=== PATIENT | female | born 1985 | race Caucasian/White ===

== ENCOUNTER 2018-01-08 22:47 | Observation (INO) | payer MEDICAID ==
--- NOTE | 2018-01-08 23:21 | ED PDOC ---
Arrival/HPI - General Chief Complaint: Dizziness/Lightheaded Time Seen by Provider: 01/08/18 23:03 Historian: Patient - History of Present Illness Narrative History of Present Illness (Text): 01/08/18 23:18 32 year old female, whose past medical history includes recent miscarriage 1 week ago, presents to the emergency department complaining of nausea and dizziness for the past week. Patient states she has been taking Morphine prescribed by her doctor following the miscarriage.Pt. states she was 2 months . Patient denies any fever, chills, chest pain, shortness of breath, abdominal pain, vomiting, diarrhea, urinary symptoms, back pain, neck pain, headache, or any other complaints.No vaginal bleeding currently. PMD: Dr. Beatrice Elder Time/Duration: 1 week Symptom Onset: Gradual Symptom Course: Unchanged Activities at Onset: Light Context: Home Past Medical History - Provider Review Nursing Documentation Reviewed: Yes - Psychiatric Hx Substance Use: No Family/Social History - Physician Review Nursing Documentation Reviewed: Yes Family/Social History: No Known Family HX Smoking Status: no Hx Alcohol Use: No Hx Substance Use: No Allergies/Home Meds Allergies/Adverse Reactions: Allergies No Known Allergies Allergy (Unverified 01/08/18 23:14) Home Medications: Home Meds Medication Instructions Recorded Confirmed No Known Home Med 01/09/18 01/09/18 Review of Systems - Physician Review All systems were reviewed & negative as marked: Yes - Review of Systems Constitutional: absent: Fevers, Other (Chills) Respiratory: absent: SOB Cardiovascular: absent: Chest Pain Gastrointestinal: Nausea. absent: Abdominal Pain, Diarrhea, Vomiting Genitourinary Female: absent: Dysuria, Frequency, Hematuria Musculoskeletal: absent: Back Pain, Neck Pain Skin: Other (pale) Neurological: Dizziness. absent: Headache Physical Exam Vital Signs Reviewed: Yes Vital Signs Temp Pulse Resp Pulse Ox 01/08/18 23:06 98.6 F 101 H 18 99 Temperature: Afebrile Pulse: Tachycardic Respiratory Rate: Normal Appearance: Positive for: Well-Appearing, Non-Toxic, Comfortable Pain Distress: None Mental Status: Positive for: Alert and Oriented X 3 - Systems Exam Head: Present: Atraumatic, Normocephalic Pupils: Present: PERRL Extroacular Muscles: Present: EOMI Conjunctiva: Present: Other (pale) Ears: Present: NORMAL TM Mouth: Present: Moist Mucous Membranes Neck: Present: Normal Range of Motion Respiratory/Chest: Present: Clear to Auscultation, Good Air Exchange. No: Respiratory Distress, Accessory Muscle Use Cardiovascular: Present: Normal S1, S2, Tachycardic. No: Murmurs Abdomen: No: Tenderness, Distention, Peritoneal Signs Back: Present: Normal Inspection Upper Extremity: Present: Normal Inspection. No: Cyanosis, Edema Lower Extremity: Present: Normal Inspection. No: Edema Neurological: Present: GCS=15, CN II-XII Intact, Speech Normal, Motor Func Grossly Intact, Normal Sensory Function Skin: Present: Warm, Dry, Normal Color. No: Rashes Psychiatric: Present: Alert, Oriented x 3, Normal Insight, Normal Concentration Medical Decision Making ED Course and Treatment: 01/08/18 23:18 Impression: 32 year old female presents complaining of nausea and dizziness for the past week. Patient has been taking Morphine for the past week following miscarriage. Plan: -- EKG -- Labs -- IV Fluids, Zofran Inj -- Urinalysis -- Reassess and disposition Progress Notes: 01/09/18 02:19 EKG shows Sinus Tachycardia at 100 BPM with no acute changes. Interpreted by me. 01/09/18 02:21 Case discussed with General Farm Hand and Dr. Pike who is aware and agrees with the plan. Accepts patient to hospitalist service. - Lab Interpretations Lab Results: 01/08/18 23:49 01/08/18 23:49 Lab Results 01/08/18 23:49: Urine Color Yellow, Urine Appearance Clear, Urine pH 6.0, Ur Specific [place] 1.015, Urine Protein Negative, Urine Glucose (UA) Negative, Urine Ketones Negative, Urine Blood Large H, Urine Nitrate Negative, Urine Bilirubin Negative, Urine Urobilinogen 0.2, Ur Leukocyte Esterase Negative, Urine RBC 5 - 10, Urine WBC 0 - 2, Ur Epithelial Cells 1 - 3, Urine Bacteria Few 01/08/18 23:49: WBC 8.6, RBC 3.14 L, Hgb 7.7 L, Hct 24.1 L, MCV 76.8 L, MCH 24.5 L, MCHC 32.0, RDW 14.6 H, Plt Count 301, MPV 11.0 01/08/18 23:49: Sodium 142, Potassium 4.2, Chloride 107, Carbon Dioxide 26, Anion Gap 13, BUN 7, Creatinine 0.7, Est GFR ( Amer) > 60, Est GFR (Non- Af Amer) > 60, Random Glucose 101, Calcium 9.8, Total Bilirubin 0.2, AST 22, ALT 22, Alkaline Phosphatase 63, Lactate Dehydrogenase 404, Total Creatine Kinase 28 L, Troponin I < 0.01, Total Protein 7.5, Albumin 3.9, Globulin 3.6, Albumin/Globulin Ratio 1.1 01/08/18 23:49: PT 13.4 H, INR 1.17 H, APTT 23.8 L I have reviewed the lab results: Yes - EKG Interpretation Interpreted by ED Physician: Yes Type: 12 lead EKG - Medication Orders Current Medication Orders: Sodium Chloride (Sodium Chloride 0.9%) 1,000 mls @ 100 mls/hr IV .Q10H FABIANA Last Admin: 01/09/18 00:22 Dose: 100 mls/hr eMAR Start Stop Document 01/09/18 00:22 SS (Rec: 01/09/18 00:22 SS [facility] [id number] Intravenous Solution Start Date 01/09/18 Start Time 00:22 Discontinued Medications Ondansetron HCl (Zofran Inj) 4 mg IVP ONCE ONE Stop: 01/08/18 23:17 Last Admin: 01/09/18 00:20 Dose: 4 mg IVP Administration Document 01/09/18 00:20 SS (Rec: 01/09/18 00:22 SS [facility] [id number] Charges for Administration # of IVP Administrations 1 - Scribe Statement The provider has reviewed the documentation as recorded by the [place] Provider Scribe Attestation: All medical record entries made by the [place] were at my direction and personally dictated by me. I have reviewed the chart and agree that the record accurately reflects my personal performance of the history, physical exam, medical decision making, and the department course for this patient. I have also personally directed, reviewed, and agree with the discharge instructions and disposition. Disposition/Present on Arrival - Present on Arrival Any Indicators Present on Arrival: No History of DVT/PE: No History of Uncontrolled Diabetes: No Urinary Catheter: No History of Decub. Ulcer: No History Surgical Site Infection Following: None - Disposition Have Diagnosis and Disposition been Completed?: Yes Diagnosis: Anemia, History of miscarriage, Hx of vaginal bleeding Disposition: HOSPITALIZED Disposition Time: 02:39 Patient Plan: Observation Patient Problems: Current Active Problems Problem Status Onset Anemia Acute History of miscarriage Acute Hx of vaginal bleeding Acute Condition: STABLE
[2018-01-08] MEDS ORDERED: Sodium Chloride 0.9% 1,000 ML IV SCH (23:30)
[2018-01-09 00:15] LABS: URINE BILIRUBIN NEGATIVE (NEGATIVE); URINE BLOOD LARGE (NEGATIVE); URINE GLUCOSE (UA) NEGATIVE (NEGATIVE); URINE LEUKOCYTE ESTERASE NEGATIVE Leu/uL (NEGATIVE); URINE PROTEIN NEGATIVE mg/dL (<30 mg/dL); URINE UROBILINOGEN 0.2 E.U./dL (<1 E.U./dL)
[2018-01-09 00:16] LABS: HEMOGLOBIN 7.7 g/dL (12.0-16.0); MEAN CELL VOLUME 76.8 fl (80.0-105.0); MEAN CORPUSCULAR HEMOGLOBIN 24.5 pg (25.0-35.0); RBC 3.14 10^6/uL (3.5-6.1); RED CELL DISTRIBUTION WIDTH 14.6 % (11.5-14.5); WHITE BLOOD COUNT 8.6 10^3/ul (4.5-11.0)
[2018-01-09 00:28] LABS: INR 1.17 (0.93-1.08); PARTIAL THROMBOPLASTIN TIME 23.8 Seconds (25.1-36.5); PROTHROMBIN TIME 13.4 SECONDS (9.4-12.5)
[2018-01-09 00:30] LABS: URINE APPEARANCE CLEAR (CLEAR); URINE COLOR YELLOW (YELLOW)
[2018-01-09 00:33] LABS: URINE BACTERIA FEW (NEG); URINE WBC 0 - 2 /hpf (0-6)
[2018-01-09 00:34] LABS: ALB/GLOB RATIO 1.1 (1.1-1.8); ALBUMIN 3.9 g/dL (3.0-4.8); ALT/SGPT 22 U/L (7-56); AST/SGOT 22 U/L (14-36); BLOOD UREA NITROGEN 7 mg/dL (7-21); CALCIUM 9.8 mg/dL (8.4-10.5); GFR AFRICAN-AMERICAN > 60; GFR NON-AFRICAN AMERICAN > 60
[2018-01-09 00:45] LABS: TROPONIN I < 0.01 ng/mL
[2018-01-09] MEDS ORDERED: Sodium Chloride 0.9% 500 ML IV SCH ×2 (03:15→04:30)
[2018-01-09] MEDS ORDERED: Sodium Chloride 0.9% 1,000 ML IV SCH (03:18)
--- NOTE | 2018-01-09 03:38 | CP.PCM.HP ---
<Caity Ernst - Last Filed: 01/09/18 03:18> History of Present Illness - History of Present Illness History of Present Illness: Caity Ernst, PGY1, H&P for Dr Clara Pike: CC: nausea, dizziness 32 year old female , with recent induced (likely due to anembryonic ) 1 week ago, presents for dizziness for 1 week. Pt states that she was 2 months , and was found to have an "empty sac" on US. Does not remember her LMP. Pt thus had an induced last week on Monday. She took the medications that her rinkman prescribed. She then had bleeding for 4 hours that day. Since then, pt has had decreased oral intake as per pt's . Pt states that she has been feeling dizzy with mild headache, fatigue and some nausea. Also reports mild epigastric pain/dyspepsia. Denies fever, chills, vomiting, cp, palpitations, sob, syncope, back pain, neck pain, diarrhea , constipation, urinary symptoms, leg swelling. Pt reports mild spotting of blood for the past week. In ED, pt had mildly elevated HR 101, other vitals stable. Hgb 7.7, MCV 76.8. Received zofran and 1L NS bolus. type and screen performed. 12 point ROS obtained and negative, except as per HPI. PMD: Jerrod rinkman: Dr Stanley () OB hx: 3 PMH: denies PSH:denies All: NKA FH: denies SH: lives with and 3 children (11 years old, 10 years old and 7 years old). Housewife. Denies tobacco/alcohol/illicit drug use Present on Admission - Present on Admission Any Indicators Present on Admission: No History of DVT/PE: No History of Uncontrolled Diabetes: No Urinary Catheter: No Decubitus Ulcer Present: No Review of Systems - Review of Systems All systems: reviewed and no additional remarkable complaints except Review of Systems: as per HPI Past Patient History - Past Social History Smoking Status: no - PSYCHIATRIC Hx Substance Use: No Meds Home Medications: Home Medication List Medication Instructions Recorded Confirmed Type Docusate [Colace] 100 mg PO BID PRN #10 cap 01/10/18 Rx Ferrous Sulfate [Feosol] 324 mg PO TID #30 ect 01/10/18 Rx Allergies/Adverse Reactions: Allergies Allergy/AdvReac Type Severity Reaction Status Date / Time PORK Allergy ITCHING Verified 01/09/18 04:18 pork derived (porcine) Allergy ITCHING Verified 01/09/18 04:18 Physical Exam - Constitutional Appears: Non-toxic, No Acute Distress - Head Exam Head Exam: ATRAUMATIC, NORMOCEPHALIC - Eye Exam Eye Exam: EOMI, PERRL. absent: Conjunctival injection, Nystagmus, Scleral icterus Pupil Exam: NORMAL ACCOMODATION, PERRL. absent: Fixed, Irregular, Unequal Additional comments: No conjunctival pallor Negative Lena sherman pike - ENT Exam ENT Exam: Mucous Membranes Dry - Neck Exam Neck exam: Positive for: Full Rom - Respiratory Exam Respiratory Exam: Clear to Auscultation Bilateral, NORMAL BREATHING PATTERN. absent: Accessory Muscle Use, Rhonchi, Wheezes - Cardiovascular Exam Cardiovascular Exam: RRR, +S1, +S2. absent: Systolic Murmur - GI/Abdominal Exam GI & Abdominal Exam: Normal Bowel Sounds, Soft. absent: Distended, Firm, Guarding, Mass, Rebound, Rigid, Tenderness - Extremities Exam Extremities exam: Positive for: normal inspection. Negative for: calf tenderness, pedal edema - Back Exam Back exam: NORMAL INSPECTION - Neurological Exam Neurological exam: Alert, Oriented x3 - Psychiatric Exam Psychiatric exam: Normal Affect, Normal Mood - Skin Skin Exam: Dry, Normal Color, Warm Results - Vital Signs Recent Vital Signs: Last Vital Signs Temp 98.6 F 01/08/18 23:06 Pulse 105 H 01/09/18 03:16 Resp 20 01/09/18 03:16 BP 133/78 01/09/18 03:16 Pulse Ox 98 01/09/18 03:16 - Labs Result Diagrams: 01/08/18 23:49 01/08/18 23:49 Labs: Laboratory Results - last 24 hr 01/08/18 01/08/18 01/08/18 23:49 23:49 23:49 WBC 8.6 RBC 3.14 L Hgb 7.7 L Hct 24.1 L MCV 76.8 L MCH 24.5 L MCHC 32.0 RDW 14.6 H Plt Count 301 MPV 11.0 PT 13.4 H INR 1.17 H APTT 23.8 L Sodium 142 Potassium 4.2 Chloride 107 Carbon Dioxide 26 Anion Gap 13 BUN 7 Creatinine 0.7 Est GFR ( Amer) > 60 Est GFR (Non-Af Amer) > 60 Random Glucose 101 Calcium 9.8 Total Bilirubin 0.2 AST 22 ALT 22 Alkaline Phosphatase 63 Lactate Dehydrogenase 404 Total Creatine Kinase 28 L Troponin I < 0.01 Total Protein 7.5 Albumin 3.9 Globulin 3.6 Albumin/Globulin Ratio 1.1 Urine Color Urine Appearance Urine pH Ur Specific [place] Urine Protein Urine Glucose (UA) Urine Ketones Urine Blood Urine Nitrate Urine Bilirubin Urine Urobilinogen Ur Leukocyte Esterase Urine RBC Urine WBC Ur Epithelial Cells Urine Bacteria 01/08/18 23:49 WBC RBC Hgb Hct MCV MCH MCHC RDW Plt Count MPV PT INR APTT Sodium Potassium Chloride Carbon Dioxide Anion Gap BUN Creatinine Est GFR ( Amer) Est GFR (Non-Af Amer) Random Glucose Calcium Total Bilirubin AST ALT Alkaline Phosphatase Lactate Dehydrogenase Total Creatine Kinase Troponin I Total Protein Albumin Globulin Albumin/Globulin Ratio Urine Color Yellow Urine Appearance Clear Urine pH 6.0 Ur Specific [place] 1.015 Urine Protein Negative Urine Glucose (UA) Negative Urine Ketones Negative Urine Blood Large H Urine Nitrate Negative Urine Bilirubin Negative Urine Urobilinogen 0.2 Ur Leukocyte Esterase Negative Urine RBC 5 - 10 Urine WBC 0 - 2 Ur Epithelial Cells 1 - 3 Urine Bacteria Few Assessment & Plan - Assessment and Plan (Free Text) Assessment: 32 year old , with no significant PMH, presents for dizziness: Dizziness: 2/2 microcytic anemia (2/2 induced ) vs dehydration vs BPPV vs labyrinthitis - Pelvic US - B HCG quantitative - iron studies, vitamin B12, folate - EKG S tachycardia 101. NSR. QTc 438 ms. - 1L NS bolus given in ED. Give 500 cc bolus, NS @ 150 - Type and screen - 2 units prbcs. will administer - Regional Merchandising Manager consult. F/u recs - Zofran prn - orthostatics PPX: protonix, SCDs Discussed with Dr Jax Pike. - Date & Time Date: 01/09/18 Time: 03:51 <Gregorio Pike - Last Filed: 01/10/18 20:24> Results - Vital Signs Recent Vital Signs: Last Vital Signs Temp 98.5 F 01/10/18 13:59 Pulse 94 H 01/10/18 13:59 Resp 20 01/10/18 13:59 BP 117/64 01/10/18 13:59 Pulse Ox 100 01/10/18 06:00 - Labs Result Diagrams: 01/10/18 06:30 01/10/18 06:30 Labs: Laboratory Results - last 24 hr 01/09/18 01/10/18 01/10/18 02:55 06:30 06:30 WBC 7.1 D RBC 2.87 L Hgb 7.3 L Hct 22.4 L MCV 78.0 L MCH 25.4 MCHC 32.6 RDW 14.8 H Plt Count 227 MPV 11.0 Gran % 65.9 Lymph % (Auto) 24.5 [place] % (Auto) 8.6 H Eos % (Auto) 0.7 L Baso % (Auto) 0.3 Gran # 4.69 Lymph # (Auto) 1.7 [place] # (Auto) 0.6 Eos # (Auto) 0.1 Baso # (Auto) 0.02 Sodium 140 Potassium 4.4 Chloride 108 H Carbon Dioxide 25 Anion Gap 10 BUN 8 Creatinine 0.7 Est GFR ( Amer) > 60 Est GFR (Non-Af Amer) > 60 Random Glucose 95 Calcium 8.2 L Total Bilirubin 0.1 L AST 15 ALT 25 Alkaline Phosphatase 41 Total Protein 5.9 Albumin 2.9 L Globulin 3.0 Albumin/Globulin Ratio 0.9 L Blood Type A NEGATIVE Antibody Screen Negative Crossmatch See Detail BBK History Checked No verified bt
[2018-01-09 04:12] LABS: IRON 18 ug/dL (45-180)
[2018-01-09 04:21] LABS: % IRON SATURATION 6 % (20-55); TOTAL IRON BINDING CAPACITY 302 ug/dL (265-497)
[2018-01-09 04:29] VITALS: BMI 29.8
--- NOTE | 2018-01-09 10:38 | CARD ---
APPROVED REPORT EKG Measurement Heart [id number] <Conclusion> Normal sinus rhythm Normal ECG
[2018-01-09 12:05] LABS: FERRITIN 21.2 ng/mL
[2018-01-09 12:35] LABS: FOLATE > 20.0 ng/mL
[2018-01-09 13:56] LABS: BASO # 0.02 K/mm3 (0.0-2.0); BASO % 0.2 % (0.0-3.0); EOS % 0.2 % (1.5-5.0); GRAN # 7.03 (1.4-6.5); GRAN % 78.4 % (50.0-68.0); LYMPH # 1.4 (1.2-3.4); LYMPH % 15.2 % (22.0-35.0); MEAN CORPUSCULAR HEMOGLOBIN 25.9 pg (25.0-35.0); MEAN CORPUSCULAR HGB CONC 32.8 g/dl (31.0-37.0); MEAN PLATELET VOLUME 10.7 fl (7.0-11.0); MONO # 0.5 (0.1-0.6); RBC 3.47 10^6/uL (3.5-6.1); RED CELL DISTRIBUTION WIDTH 14.9 % (11.5-14.5)
[2018-01-09 14:03] LABS: ALB/GLOB RATIO 1.1 (1.1-1.8); ALBUMIN 3.5 g/dL (3.0-4.8); ALT/SGPT 18 U/L (7-56); AST/SGOT 19 U/L (14-36); BLOOD UREA NITROGEN 7 mg/dL (7-21); CALCIUM 9.1 mg/dL (8.4-10.5); GFR AFRICAN-AMERICAN > 60; GFR NON-AFRICAN AMERICAN > 60
--- NOTE | 2018-01-09 14:25 | CP.PCM.PN ---
Subjective - Date & Time of Evaluation Date of Evaluation: 01/09/18 Time of Evaluation: 14:25 - Subjective Subjective: Internal Medicine Progress Note: increased vascularity in anterior midbody of uterus myometrium seen in avm Objective - Vital Signs/Intake and Output Vital Signs (last 24 hours): Temp Pulse Resp BP Pulse Ox 98.8 F 104 H 12 117/62 99 01/09/18 10:02 01/09/18 10:02 01/09/18 10:02 01/09/18 10:02 01/09/18 07:59 Intake and Output: 01/09/18 01/09/18 06:59 18:59 Intake Total 180 301 Balance 180 301 - Medications Medications: Current Medications Sodium Chloride (Sodium Chloride 0.9%) 1,000 mls @ 150 mls/hr IV .Q6H40M [facility] Ondansetron HCl (Zofran Inj) 4 mg IVP Q6H PRN PRN Reason: Nausea/Vomiting Pantoprazole Sodium (Protonix Inj) 40 mg IVP DAILY [facility] Last Admin: 01/09/18 11:08 Dose: 40 mg - Labs Labs: 01/09/18 13:45 01/09/18 13:45 PT 13.4 SECONDS (9.4-12.5) H 01/08/18 23:49 INR 1.17 (0.93-1.08) H 01/08/18 23:49 APTT 23.8 Seconds (25.1-36.5) L 01/08/18 23:49
--- NOTE | 2018-01-09 14:44 | US ---
HISTORY: induced COMPARISON: None available. TECHNIQUE: Transabdominal pelvic ultrasound was performed. FINDINGS: UTERUS: Measures 9.5 x 4.5 x 6.8 cm. Anteverted and normal in size. There is focal asymmetric increased vascularity in the anterior myometrium in the midbody of the uterus. ENDOMETRIUM: Measures 7.4 mm in diameter. Normal in appearance. CERVIX: No cervical abnormality identified. RIGHT OVARY: Measures 2.5 x 1.5 x 2.1 cm. No solid mass. Normal flow. LEFT OVARY: Measures 2.3 x 1.6 x 2.9 cm. No solid mass. Normal flow. FREE FLUID: No significant free fluid noted. OTHER FINDINGS: None. IMPRESSION: 1. Normal appearance of central endometrial echo complex. No retained products of conception. 2. Focal asymmetric increased vascularity in the anterior myometrium in the midbody of the uterus. Underlying vascular malformation cannot be entirely excluded. A transvaginal ultrasound is recommended for further evaluation. Important findings were discussed with the resident on 01/09/2018 at 2 p.m.
[2018-01-09 16:33] VITALS: RESP 20; O2SAT 100
--- NOTE | 2018-01-09 17:41 | US ---
HISTORY: Evaluation for possible retained products COMPARISON: January 09, 2018. Pelvic ultrasound TECHNIQUE: Transvaginal only. Real -time technique with 2D, duplex and color Doppler FINDINGS: UTERUS: Measures 5.7 x 6.0 x 8.6 cm. Normal in size and appearance. Hypervascular myometrium. No fibroid or other mass lesion seen. ENDOMETRIUM: Measures 20.0 mm in diameter. Thickened, irregular and hypervascular endometrium consistent with suspected retained products of conception. CERVIX: No cervical abnormality identified. RIGHT OVARY: Measures 1.6 x 2.5 x 2.8 cm. No solid mass. Normal flow. LEFT OVARY: Measures 1.6 x 2.8 x 3.7 cm. No solid mass. Normal flow. FREE FLUID: No significant free fluid noted. OTHER FINDINGS: None. IMPRESSION: Markedly thickened irregular heterogeneous and hypervascular endometrium consistent with retained products of conception. No visible gestational sac, a gestational pole or yolk sac.
--- NOTE | 2018-01-09 19:25 | CP.PCM.PN ---
Subjective - Date & Time of Evaluation Date of Evaluation: 01/09/18 Objective - Vital Signs/Intake and Output Vital Signs (last 24 hours): Temp Pulse Resp BP Pulse Ox 99.5 F 77 20 110/66 100 01/09/18 16:32 01/09/18 16:32 01/09/18 16:32 01/09/18 16:32 01/09/18 16:32 Intake and Output: 01/09/18 01/10/18 18:59 06:59 Intake Total 301 Balance 301 - Medications Medications: Current Medications Sodium Chloride (Sodium Chloride 0.9%) 1,000 mls @ 150 mls/hr IV .Q6H40M [facility] Ondansetron HCl (Zofran Inj) 4 mg IVP Q6H PRN PRN Reason: Nausea/Vomiting Pantoprazole Sodium (Protonix Inj) 40 mg IVP DAILY [facility] Last Admin: 01/09/18 11:08 Dose: 40 mg - Labs Labs: 01/09/18 13:45 01/09/18 13:45 PT 13.4 SECONDS (9.4-12.5) H 01/08/18 23:49 INR 1.17 (0.93-1.08) H 01/08/18 23:49 APTT 23.8 Seconds (25.1-36.5) L 01/08/18 23:49
--- NOTE | 2018-01-09 19:29 | CP.PCM.PCO ---
Physician Communication Note - Physician Communication Note Physician Communication Note: Spoke Addendum Addendum: 01/09/18 19:27 Was called on patient overnight because her TVUS report reflected retained products of conception. Went to assess the patient who is stable s/p 2 units of blood with no signs of infection. Patient's vitals were stable, labs were stable and H/H was stable s/p 2 units of blood. Called the SERVICE MECHANIC on the case, Dr. Davalos, who kindly gave her recommendations and stated that patient is stable and does not need any further SERVICE MECHANIC intervention. Dr. Davalos informed me that patient is stable for discharge from her standpoint.
[2018-01-10] MEDS ORDERED: Pantoprazole 40 mg EC Tab PO SCH (06:00)
[2018-01-10 07:08] LABS: BASO # 0.02 K/mm3 (0.0-2.0); BASO % 0.3 % (0.0-3.0); EOS # 0.1 (0.0-0.7); EOS % 0.7 % (1.5-5.0); GRAN # 4.69 (1.4-6.5); GRAN % 65.9 % (50.0-68.0); HEMOGLOBIN 7.3 g/dL (12.0-16.0); LYMPH # 1.7 (1.2-3.4); LYMPH % 24.5 % (22.0-35.0); MEAN CORPUSCULAR HEMOGLOBIN 25.4 pg (25.0-35.0); MEAN CORPUSCULAR HGB CONC 32.6 g/dl (31.0-37.0); MONO # 0.6 (0.1-0.6); MONO % 8.6 % (1.0-6.0); RBC 2.87 10^6/uL (3.5-6.1); RED CELL DISTRIBUTION WIDTH 14.8 % (11.5-14.5); WHITE BLOOD COUNT 7.1 10^3/ul (4.5-11.0)
[2018-01-10 07:31] LABS: ALB/GLOB RATIO 0.9 (1.1-1.8); ALBUMIN 2.9 g/dL (3.0-4.8); ALT/SGPT 25 U/L (7-56); AST/SGOT 15 U/L (14-36); BLOOD UREA NITROGEN 8 mg/dL (7-21); CALCIUM 8.2 mg/dL (8.4-10.5); GFR AFRICAN-AMERICAN > 60; GFR NON-AFRICAN AMERICAN > 60
--- NOTE | 2018-01-10 11:28 | CP.PCM.DIS ---
<Mami Laura - Last Filed: 01/10/18 17:08> Provider - Provider Date of Admission: 01/09/18 02:39 Attending physician: Katalina Michelle MD Primary care physician: Etta Elder MD Consults: BRIA Grewal Time Spent in preparation of Discharge (in minutes): 32 Hospital Course - Lab Results Lab Results: Most Recent Lab Values WBC 7.1 10^3/ul (4.5-11.0) D 01/10/18 06:30 RBC 2.87 10^6/uL (3.5-6.1) L 01/10/18 06:30 Hgb 7.3 g/dL (12.0-16.0) L 01/10/18 06:30 Hct 22.4 % (36.0-48.0) L 01/10/18 06:30 MCV 78.0 fl (80.0-105.0) L 01/10/18 06:30 MCH 25.4 pg (25.0-35.0) 01/10/18 06:30 MCHC 32.6 g/dl (31.0-37.0) 01/10/18 06:30 RDW 14.8 % (11.5-14.5) H 01/10/18 06:30 Plt Count 227 10^3/uL (120.0-450.0) 01/10/18 06:30 MPV 11.0 fl (7.0-11.0) 01/10/18 06:30 Gran % 65.9 % (50.0-68.0) 01/10/18 06:30 Lymph % (Auto) 24.5 % (22.0-35.0) 01/10/18 06:30 [place] % (Auto) 8.6 % (1.0-6.0) H 01/10/18 06:30 Eos % (Auto) 0.7 % (1.5-5.0) L 01/10/18 06:30 Baso % (Auto) 0.3 % (0.0-3.0) 01/10/18 06:30 Gran # 4.69 (1.4-6.5) 01/10/18 06:30 Lymph # (Auto) 1.7 (1.2-3.4) 01/10/18 06:30 [place] # (Auto) 0.6 (0.1-0.6) 01/10/18 06:30 Eos # (Auto) 0.1 (0.0-0.7) 01/10/18 06:30 Baso # (Auto) 0.02 K/mm3 (0.0-2.0) 01/10/18 06:30 PT 13.4 SECONDS (9.4-12.5) H 01/08/18 23:49 INR 1.17 (0.93-1.08) H 01/08/18 23:49 APTT 23.8 Seconds (25.1-36.5) L 01/08/18 23:49 Sodium 140 mmol/L (132-148) 01/10/18 06:30 Potassium 4.4 mmol/L (3.6-5.0) 01/10/18 06:30 Chloride 108 mmol/L (98-107) H 01/10/18 06:30 Carbon Dioxide 25 mmol/L (21-33) 01/10/18 06:30 Anion Gap 10 (10-20) 01/10/18 06:30 BUN 8 mg/dL (7-21) 01/10/18 06:30 Creatinine 0.7 mg/dl (0.7-1.2) 01/10/18 06:30 Est GFR ( Amer) > 60 01/10/18 06:30 Est GFR (Non-Af Amer) > 60 01/10/18 06:30 Random Glucose 95 mg/dL (70-110) 01/10/18 06:30 Calcium 8.2 mg/dL (8.4-10.5) L 01/10/18 06:30 Iron 18 ug/dL (45-180) L 01/08/18 23:49 TIBC 302 ug/dL (265-497) 01/08/18 23:49 % Saturation 6 % (20-55) L 01/08/18 23:49 Ferritin 21.2 ng/mL 01/08/18 23:49 Total Bilirubin 0.1 mg/dL (0.2-1.3) L 01/10/18 06:30 AST 15 U/L (14-36) 01/10/18 06:30 ALT 25 U/L (7-56) 04/11/18 06:30 Alkaline Phosphatase 41 U/L (38-126) 01/10/18 06:30 Lactate Dehydrogenase 404 U/L (333-699) 01/08/18 23:49 Total Creatine Kinase 28 U/L (35-230) L 01/08/18 23:49 Troponin I < 0.01 ng/mL 01/08/18 23:49 Total Protein 5.9 g/dL (5.8-8.3) 01/10/18 06:30 Albumin 2.9 g/dL (3.0-4.8) L 01/10/18 06:30 Globulin 3.0 gm/dL 01/10/18 06:30 Albumin/Globulin Ratio 0.9 (1.1-1.8) L 01/10/18 06:30 Vitamin B12 396 pg/mL (239-931) 01/08/18 23:49 Folate > 20.0 ng/mL 01/08/18 23:49 Beta HCG, Quant 1640.10 mIU/mL (0-6.15) H 01/08/18 23:49 Urine Color Yellow (YELLOW) 01/08/18 23:49 Urine Appearance Clear (CLEAR) 01/08/18 23:49 Urine pH 6.0 (4.7-8.0) 01/08/18 23:49 Ur Specific [place] 1.015 (1.005-1.035) 01/08/18 23:49 Urine Protein Negative mg/dL (<30 mg/dL) 01/08/18 23:49 Urine Glucose (UA) Negative mg/dL (NEGATIVE) 01/08/18 23:49 Urine Ketones Negative mg/dL (NEGATIVE) 01/08/18 23:49 Urine Blood Large (NEGATIVE) H 01/08/18 23:49 Urine Nitrate Negative (NEGATIVE) 01/08/18 23:49 Urine Bilirubin Negative (NEGATIVE) 01/08/18 23:49 Urine Urobilinogen 0.2 E.U./dL (<1 E.U./dL) 01/08/18 23:49 Ur Leukocyte Esterase Negative [place]/uL (NEGATIVE) 01/08/18 23:49 Urine RBC 5 - 10 /hpf (0-2) 01/08/18 23:49 Urine WBC 0 - 2 /hpf (0-6) 01/08/18 23:49 Ur Epithelial Cells 1 - 3 /hpf (0-5) 01/08/18 23:49 Urine Bacteria Few (NEG) 01/08/18 23:49 Blood Type A NEGATIVE 01/09/18 02:55 Blood Type Confirm A NEGATIVE 01/09/18 04:02 Antibody Screen Negative 01/09/18 02:55 Crossmatch See Detail 01/09/18 02:55 BBK History Checked No verified bt 01/09/18 02:55 - Hospital Course Hospital Course: History of Present Illness: 32 year old female , with recent induced (likely due to anembryonic ) 1 week ago, presents for dizziness for 1 week. Pt states that she was 2 months , and was found to have an "empty sac" on US. Does not remember her LMP. Pt thus had an induced last week on Monday. She took the medications that her mercury cell cleaner prescribed. She then had bleeding for 4 hours that day. Since then, pt has had decreased oral intake as per pt's . Pt states that she has been feeling dizzy with mild headache, fatigue and some nausea. Also reports mild epigastric pain/dyspepsia. Denies fever, chills, vomiting, cp, palpitations, sob, syncope, back pain, neck pain, diarrhea , constipation, urinary symptoms, leg swelling. Pt reports mild spotting of blood for the past week. Hospital Course: Patient was admitted to med/surg and started on IV hydration. Hgb was 7.7 on admission. Patient went for pelvic ultrasound that showed normal appearance of central endometrial echo complex, focal asymmetric increased vascularity in the anterior myometrium in the midbody of the uterus. Transvaginal ultrasound showed markedly thickened irregular heterogeneous and hypervascular endometrium consistent with retained products of conception. Beta Hcg 1640. OBGYN was consulted. Patient was transfused two units of PRBCs. Post transfusion CBC was noted to be 9.0. The following morning, hgb 7.3, patient was transfused an additional unit. Currently States that she is having vaginal spotting. Dizziness has improved. Per OBGYN recommendation, patient to follow up outpatient with OB. After blood transfusion patient was adamant about wanting to go home. Advised that she should have CBC checked tomorrow as she has an appointment 01/11/18 with OBGYN. Patient discharged home with Ferrous sulfate 325mg PO TID for iron deficiency anemia and Colace. Discharge Exam - Head Exam Head Exam: ATRAUMATIC, NORMOCEPHALIC - Eye Exam Eye Exam: EOMI, Normal appearance Pupil Exam: NORMAL ACCOMODATION, PERRL - ENT Exam ENT Exam: Mucous Membranes Moist - Respiratory Exam Respiratory Exam: Clear to PA & Lateral, NORMAL BREATHING PATTERN, UNREMARKABLE - Cardiovascular Exam Cardiovascular Exam: REGULAR RHYTHM, +S1, +S2 - GI/Abdominal Exam GI & Abdominal Exam: Normal Bowel Sounds, Soft. absent: Guarding, Rebound, Rigid, Tenderness - Extremities Exam Extremities exam: normal inspection - Neurological Exam Neurological exam: Alert, Normal Gait, Oriented x3 - Psychiatric Exam Psychiatric exam: Normal Affect, Normal Mood - Skin Skin Exam: Dry, Normal Color, Warm Discharge Plan - Discharge Medications Prescriptions: Docusate [Colace] 100 mg PO BID PRN #10 cap PRN Reason: Constipation Ferrous Sulfate [Feosol] 324 mg PO TID #30 ect - Follow Up Plan Condition: STABLE Disposition: HOME/ ROUTINE Patient education suggested?: Yes Instructions: Miscarriage Additional Instructions: 1. Follow up with commercial litigation attorney on January 11. 2. Take Iron pills 3 times per day. Can cause constipation and dark stools so drink lots of water and use over the counter stool softener if constipated. 3. If symptoms worsen, please go to nearest ED. Referrals: Etta Elder MD [Primary Care Provider] - <Katalina Michelle - Last Filed: 01/11/18 08:38> Provider - Provider Date of Admission: 01/09/18 02:39 Attending physician: Katalina Michelle MD Primary care physician: Etta Elder MD Time Spent in preparation of Discharge (in minutes): 35 Hospital Course - Lab Results Lab Results: Most Recent Lab Values WBC 7.1 10^3/ul (4.5-11.0) D 01/10/18 06:30 RBC 2.87 10^6/uL (3.5-6.1) L 01/10/18 06:30 Hgb 7.3 g/dL (12.0-16.0) L 01/10/18 06:30 Hct 22.4 % (36.0-48.0) L 01/10/18 06:30 MCV 78.0 fl (80.0-105.0) L 01/10/18 06:30 MCH 25.4 pg (25.0-35.0) 01/10/18 06:30 MCHC 32.6 g/dl (31.0-37.0) 01/10/18 06:30 RDW 14.8 % (11.5-14.5) H 01/10/18 06:30 Plt Count 227 10^3/uL (120.0-450.0) 01/10/18 06:30 MPV 11.0 fl (7.0-11.0) 01/10/18 06:30 Gran % 65.9 % (50.0-68.0) 01/10/18 06:30 Lymph % (Auto) 24.5 % (22.0-35.0) 01/10/18 06:30 [place] % (Auto) 8.6 % (1.0-6.0) H 01/10/18 06:30 Eos % (Auto) 0.7 % (1.5-5.0) L 01/10/18 06:30 Baso % (Auto) 0.3 % (0.0-3.0) 01/10/18 06:30 Gran # 4.69 (1.4-6.5) 01/10/18 06:30 Lymph # (Auto) 1.7 (1.2-3.4) 01/10/18 06:30 [place] # (Auto) 0.6 (0.1-0.6) 01/10/18 06:30 Eos # (Auto) 0.1 (0.0-0.7) 01/10/18 06:30 Baso # (Auto) 0.02 K/mm3 (0.0-2.0) 01/10/18 06:30 PT 13.4 SECONDS (9.4-12.5) H 01/08/18 23:49 INR 1.17 (0.93-1.08) H 01/08/18 23:49 APTT 23.8 Seconds (25.1-36.5) L 01/08/18 23:49 Sodium 140 mmol/L (132-148) 01/10/18 06:30 Potassium 4.4 mmol/L (3.6-5.0) 01/10/18 06:30 Chloride 108 mmol/L (98-107) H 01/10/18 06:30 Carbon Dioxide 25 mmol/L (21-33) 01/10/18 06:30 Anion Gap 10 (10-20) 01/10/18 06:30 BUN 8 mg/dL (7-21) 01/10/18 06:30 Creatinine 0.7 mg/dl (0.7-1.2) 01/10/18 06:30 Est GFR ( Amer) > 60 01/10/18 06:30 Est GFR (Non-Af Amer) > 60 01/10/18 06:30 Random Glucose 95 mg/dL (70-110) 01/10/18 06:30 Calcium 8.2 mg/dL (8.4-10.5) L 01/10/18 06:30 Iron 18 ug/dL (45-180) L 01/08/18 23:49 TIBC 302 ug/dL (265-497) 01/08/18 23:49 % Saturation 6 % (20-55) L 01/08/18 23:49 Ferritin 21.2 ng/mL 01/08/18 23:49 Total Bilirubin 0.1 mg/dL (0.2-1.3) L 01/10/18 06:30 AST 15 U/L (14-36) 01/10/18 06:30 ALT 25 U/L (7-56) 01/10/18 06:30 Alkaline Phosphatase 41 U/L (38-126) 01/10/18 06:30 Lactate Dehydrogenase 404 U/L (333-699) 01/08/18 23:49 Total Creatine Kinase 28 U/L (35-230) L 01/08/18 23:49 Troponin I < 0.01 ng/mL 01/08/18 23:49 Total Protein 5.9 g/dL (5.8-8.3) 01/10/18 06:30 Albumin 2.9 g/dL (3.0-4.8) L 01/10/18 06:30 Globulin 3.0 gm/dL 01/10/18 06:30 Albumin/Globulin Ratio 0.9 (1.1-1.8) L 01/10/18 06:30 Vitamin B12 396 pg/mL (239-931) 01/08/18 23:49 Folate > 20.0 ng/mL 01/08/18 23:49 Beta HCG, Quant 1640.10 mIU/mL (0-6.15) H 01/08/18 23:49 Urine Color Yellow (YELLOW) 01/08/18 23:49 Urine Appearance Clear (CLEAR) 01/08/18 23:49 Urine pH 6.0 (4.7-8.0) 01/08/18 23:49 Ur Specific [place] 1.015 (1.005-1.035) 01/08/18 23:49 Urine Protein Negative mg/dL (<30 mg/dL) 01/08/18 23:49 Urine Glucose (UA) Negative mg/dL (NEGATIVE) 01/08/18 23:49 Urine Ketones Negative mg/dL (NEGATIVE) 01/08/18 23:49 Urine Blood Large (NEGATIVE) H 01/08/18 23:49 Urine Nitrate Negative (NEGATIVE) 01/08/18 23:49 Urine Bilirubin Negative (NEGATIVE) 01/08/18 23:49 Urine Urobilinogen 0.2 E.U./dL (<1 E.U./dL) 01/08/18 23:49 Ur Leukocyte Esterase Negative [place]/uL (NEGATIVE) 01/08/18 23:49 Urine RBC 5 - 10 /hpf (0-2) 01/08/18 23:49 Urine WBC 0 - 2 /hpf (0-6) 01/08/18 23:49 Ur Epithelial Cells 1 - 3 /hpf (0-5) 01/08/18 23:49 Urine Bacteria Few (NEG) 01/08/18 23:49 Blood Type A NEGATIVE 01/09/18 02:55 Blood Type Confirm A NEGATIVE 01/09/18 04:02 Antibody Screen Negative 01/09/18 02:55 Crossmatch See Detail 01/09/18 02:55 BBK History Checked No verified bt 01/09/18 02:55 Attending/Attestation - Attestation I have personally seen and examined this patient.: Yes I have fully participated in the care of the patient.: Yes I have reviewed all pertinent clinical information, including history, physical exam and plan: Yes Notes (Text): 01/10/18 32 year old female with recent induced 1 week prior presented with complaint of dizziness, secondary to symptomatic anemia. She was admitted and transfused prbc. Her bleeding improved to spotting. Her pelvis and transvaginal ultrasounds were reviewed with the slusher operator who recommended outpatient gynecology follow up. She is discharged home today after prbc transfusion. Her symptoms have improved. Follow up with slusher operator tomorrow to repeat CBC. Follow up with pmd. Started on iron supplements. Katalina Michelle MD Hospitalist.
[2018-01-10 14:14] VITALS: BP 117/64; PULSE 94; TEMP 98.5
== END 2018-01-10 17:12 | disposition home or self-care (01) ==
LOC: ED 22:47 → ERH 01-09 02:39 → 5RNO 01-09 03:52
PROVIDERS: ADMIT Internal Medicine; ATTEND Internal Medicine
DX: D50.9 Iron deficiency anemia, unspecified (principal); O03.9 Complete or unspecified spontaneous abortion without complication; R40.2412 Glasgow coma scale score 13-15, at arrival to emergency department; R00.0 Tachycardia, unspecified
CPT/HCPCS: 36415; 36430; 76830; 76856; 80053; 81001; 81003; 82550; 82607; 82728; 82746; 83540; 83550; 83615; 84484; 84702; 85025; 85027; 85610; 85730; 86850; 86900; 86920; 86921; 86922; 93005; 96374; 99285; C9113; G0378; J2405; J7040; P9016

== ENCOUNTER 2018-01-19 19:47 | Emergency (ER) | payer MEDICAID ==
[2018-01-19 19:47] VITALS: BMI 29.8
[2018-01-19 20:26] VITALS: BP 123/84; PULSE 95; RESP 16; TEMP 98.9; O2SAT 98
[2018-01-19] MEDS ORDERED: Sodium Chloride 0.9% 1,000 ML IV STA (21:35)
--- NOTE | 2018-01-19 21:38 | ED PDOC ---
Arrival/HPI - General Chief Complaint: Abdominal Pain Time Seen by Provider: 01/19/18 21:35 Historian: Patient - History of Present Illness Narrative History of Present Illness (Text): 01/19/18 21:37 32 year old female , whose past medical history includes recent induced (likely due to anembryonic ) on 01/01/18 presents to the emergency department complaining of nausea, vomiting, and shortness of breath that began yesterday. Patient reports she was for 2 months and was found to have an "empty sac" on Ultrasound. She preceded to have an induced with medications prescribed by her DIRECT CARE WORKER. She began bleeding for 4 hours that day and began to develop symptoms of decreased appetite, dizziness, fatigue, nausea, and went to [facility] ER on 01/08/18 for evaluation. Patient was admitted for low hgb of 7.7 and needed a transfusion. Patient presents to the emergency department currently complaining of nausea, vomiting, and shortness of breath that began yesterday. Patient also reports dizziness but denies any fever, chills, chest pain, diarrhea, urinary symptoms, vaginal bleeding, back pain, neck pain, headache, or any other complaints. PMD: Dr. Beatrice Elder oliver filter operator: Dr Stanley () Time/Duration: 24 hours Symptom Onset: Sudden Symptom Course: Unchanged Activities at Onset: Light Context: Home Past Medical History - Provider Review Nursing Documentation Reviewed: Yes - Cardiac Hx Cardiac Disorders: No - Pulmonary Hx Respiratory Disorders: No - Neurological Hx Neurological Disorder: No - HEENT Hx HEENT Disorder: No - Renal Hx Renal Disorder: No - Endocrine/Metabolic Hx Endocrine Disorders: No - Hematological/Oncological Hx Blood Disorders: No - Integumentary Hx Dermatological Disorder: No - Musculoskeletal/Rheumatological Hx Musculoskeletal Disorders: No Hx Falls: No - Gastrointestinal Hx Gastrointestinal Disorders: No - Genitourinary/Gynecological Hx Genitourinary Disorders: Yes Other/Comment: RECENT MISSCARIAGE - Psychiatric Hx Psychophysiologic Disorder: No Hx Substance Use: No Family/Social History - Physician Review Nursing Documentation Reviewed: Yes Family/Social History: No Known Family HX Smoking Status: Never Smoked Hx Alcohol Use: No Hx Substance Use: No Allergies/Home Meds Allergies/Adverse Reactions: Allergies PORK Allergy (Verified 01/19/18 20:04) ITCHING pork derived (porcine) Allergy (Verified 01/19/18 20:04) ITCHING Review of Systems - Physician Review All systems were reviewed & negative as marked: Yes - Review of Systems Constitutional: absent: Fevers, Other (Chills) Respiratory: SOB Cardiovascular: absent: Chest Pain Gastrointestinal: Nausea, Vomiting Genitourinary Female: absent: Dysuria, Frequency, Hematuria, Vaginal Bleeding Musculoskeletal: absent: Back Pain Neurological: Dizziness. absent: Headache Physical Exam Vital Signs Reviewed: Yes Vital Signs Temp Pulse Resp BP Pulse Ox 01/19/18 20:19 98.9 F 95 H 16 123/84 98 Temperature: Afebrile Blood Pressure: Normal Pulse: Regular Respiratory Rate: Normal Appearance: Positive for: Well-Appearing, Non-Toxic, Comfortable Pain Distress: None Mental Status: Positive for: Alert and Oriented X 3 - Systems Exam Head: Present: Atraumatic, Normocephalic Pupils: Present: PERRL Extroacular Muscles: Present: EOMI Conjunctiva: Present: Normal Mouth: Present: Moist Mucous Membranes Neck: Present: Normal Range of Motion Respiratory/Chest: Present: Clear to Auscultation, Good Air Exchange. No: Respiratory Distress, Accessory Muscle Use Cardiovascular: Present: Regular Rate and Rhythm, Normal S1, S2. No: Murmurs Abdomen: Present: Tenderness (Mild epigastric discomfort upon palpation). No: Distention, Peritoneal Signs Back: Present: Normal Inspection Upper Extremity: Present: Normal Inspection. No: Cyanosis, Edema Lower Extremity: Present: Normal Inspection. No: Edema Neurological: Present: GCS=15, CN II-XII Intact, Speech Normal Skin: Present: Warm, Dry, Normal Color. No: Rashes Psychiatric: Present: Alert, Oriented x 3, Normal Insight, Normal Concentration Medical Decision Making ED Course and Treatment: 01/19/18 21:37 Impression: 32 year old female presents complaining of nausea, vomiting, shortness of breath associated with dizziness that began yesterday. Pt past medical history includes recent induced (likely due to anembryonic ). Differential Diagnosis included but are not limited to: Gastritis VS Peptic Ulcer Disease VS Anemia secondary to recent miscarriage VS Dehydration Plan: -- Labs -- IV Fluids -- POC urine Test -- HCG, Qualit urine, Urinalysis -- Reassess and disposition Prior Visits: Notes and results from previous visits were reviewed. Patient was last seen in the emergency department on 01/08/18 presents complaining of nausea, dizziness, and fatigue for the past week. Patient was admitted for anemia. Progress Notes: EKG shows Sinus Rhythm at [address]/T changes. All intervals within normal limits. Normal EKG. Interpreted by me. - Lab Interpretations Lab Results: 01/19/18 22:11 Lab Results 01/19/18 23:19: Beta HCG, Quant 389.79 H 01/19/18 22:11: Urine Color Yellow, Urine Appearance Clear, Urine pH 6.0, Ur Specific [place] 1.010, Urine Protein Negative, Urine Glucose (UA) Negative, Urine Ketones Negative, Urine Blood Negative, Urine Nitrate Negative, Urine Bilirubin Negative, Urine Urobilinogen 0.2, Ur Leukocyte Esterase Moderate H, Urine RBC TEST NOT PERFORMED, Urine WBC 10 - 15, Ur Epithelial Cells Many, Urine HCG, Qual Positive 01/19/18 22:11: Amylase 77 01/19/18 22:11: WBC 11.3 H D, RBC 4.20, Hgb 10.7 L D, Hct 32.7 L, MCV 77.9 L, MCH 25.5, MCHC 32.7, RDW 15.0 H, Plt Count 309, MPV 11.0, Gran % 72.4 H, Lymph % (Auto) 21.2 L, [place] % (Auto) 5.9, Eos % (Auto) 0.3 L, Baso % (Auto) 0.2, Gran # 8.22 H, Lymph # (Auto) 2.4, [place] # (Auto) 0.7 H, Eos # (Auto) 0.0, Baso # ( Auto) 0.02 I have reviewed the lab results: Yes - Medication Orders Current Medication Orders: Discontinued Medications Sodium Chloride (Sodium Chloride 0.9%) 1,000 mls @ 100 mls/hr IV .Q10H STA Stop: 01/20/18 07:34 Last Admin: 01/20/18 00:24 Dose: Sodium Chloride 1,000 ml/ IV (SUPPLIES) 1,000 mls @ 4,164 mls/hr IV ONCE ONE PRN Reason: 60 ML/KG/HR Stop: 01/19/18 21:37 Last Admin: 01/19/18 22:06 Dose: 4,164 mls/hr eMAR Start Stop Document 04/20/18 22:06 CNR (Rec: 01/19/18 22:06 CNR [id number]) Intravenous Solution Start Date 01/19/18 Start Time 22:06 - Scribe Statement The provider has reviewed the documentation as recorded by the Scribe [place] Provider Scribe Attestation: All medical record entries made by the Scribe were at my direction and personally dictated by me. I have reviewed the chart and agree that the record accurately reflects my personal performance of the history, physical exam, medical decision making, and the department course for this patient. I have also personally directed, reviewed, and agree with the discharge instructions and disposition. Disposition/Present on Arrival - Present on Arrival Any Indicators Present on Arrival: No History of DVT/PE: No History of Uncontrolled Diabetes: No Urinary Catheter: No History of Decub. Ulcer: No History Surgical Site Infection Following: None - Disposition Have Diagnosis and Disposition been Completed?: Yes Diagnosis: UTI (urinary tract infection), History of miscarriage Disposition: HOME/ ROUTINE Disposition Time: 06:23 Condition: GOOD Discharge Instructions (ExitCare): Urinary Tract Infections in Adults Print Language: CHINESE Prescriptions: Nitrofurantoin Macrocrystals [Macrobid] 100 mg PO BID #14 cap Referrals: Etta Elder MD [Primary Care Provider] - Follow up with primary Forms: ATOMOO (Kyrgyz)
[2018-01-19 22:19] LABS: BASO # 0.02 K/mm3 (0.0-2.0); BASO % 0.2 % (0.0-3.0); EOS % 0.3 % (1.5-5.0); GRAN # 8.22 (1.4-6.5); GRAN % 72.4 % (50.0-68.0); HEMOGLOBIN 10.7 g/dL (12.0-16.0); LYMPH # 2.4 (1.2-3.4); LYMPH % 21.2 % (22.0-35.0); MEAN CELL VOLUME 77.9 fl (80.0-105.0); MEAN CORPUSCULAR HEMOGLOBIN 25.5 pg (25.0-35.0); MEAN CORPUSCULAR HGB CONC 32.7 g/dl (31.0-37.0); MONO # 0.7 (0.1-0.6); MONO % 5.9 % (1.0-6.0); RBC 4.2 10^6/uL (3.5-6.1); URINE BILIRUBIN NEGATIVE (NEGATIVE); URINE BLOOD NEGATIVE (NEGATIVE); URINE GLUCOSE (UA) NEGATIVE (NEGATIVE); URINE LEUKOCYTE ESTERASE MODERATE Leu/uL (NEGATIVE); URINE PROTEIN NEGATIVE mg/dL (<30 mg/dL); URINE UROBILINOGEN 0.2 E.U./dL (<1 E.U./dL); WHITE BLOOD COUNT 11.3 10^3/ul (4.5-11.0)
[2018-01-19 22:23] LABS: URINE APPEARANCE CLEAR (CLEAR); URINE COLOR YELLOW (YELLOW)
[2018-01-19 22:24] LABS: HCG,QUALITATIVE URINE POSITIVE (NEGATIVE); URINE EPITHELIAL CELLS MANY /hpf (0-5)
--- NOTE | 2018-01-20 23:48 | CARD ---
APPROVED REPORT EKG Measurement Heart [id number] <Conclusion> Normal sinus rhythm Normal ECG
== END 2018-01-20 00:33 | disposition home or self-care (01) ==
LOC: ED 19:47
DX: N39.0 Urinary tract infection, site not specified (principal); Z87.59 Personal history of other complications of pregnancy, childbirth and the puerperium
CPT/HCPCS: 81001; 82150; 84702; 84703; 85025; 87086; 93005; 99283; J7040

== ENCOUNTER 2018-04-21 18:46 | Emergency (ER) | payer MEDICAID ==
[2018-04-21 18:47] VITALS: BMI 29.8
--- NOTE | 2018-04-21 19:18 | ED PDOC ---
Arrival/HPI - General Chief Complaint: Abdominal Pain Time Seen by Provider: 04/21/18 19:17 Historian: Patient - History of Present Illness Narrative History of Present Illness (Text): 04/21/18 19:18 This 32 yo female with pmh anemia, presents to this ED c/o intermittent left sided CP x 1 month. Patient stated pain return today, however, patient denies chest pain, abdominal pain at this time. Patient denies other somatic complains. PERC negative for PE Time/Duration: Other (noncontributory) Context: Home Past Medical History - Provider Review Nursing Documentation Reviewed: Yes - Cardiac Hx Cardiac Disorders: No - Pulmonary Hx Respiratory Disorders: No - Neurological Hx Neurological Disorder: No - HEENT Hx HEENT Disorder: No - Renal Hx Renal Disorder: No - Endocrine/Metabolic Hx Endocrine Disorders: No - Hematological/Oncological Hx Blood Disorders: No - Integumentary Hx Dermatological Disorder: No - Musculoskeletal/Rheumatological Hx Musculoskeletal Disorders: No Hx Falls: No - Gastrointestinal Hx Gastrointestinal Disorders: No - Genitourinary/Gynecological Hx Genitourinary Disorders: Yes Hx Urinary Tract Infection: Yes - Psychiatric Hx Psychophysiologic Disorder: No Hx Substance Use: No Family/Social History - Physician Review Nursing Documentation Reviewed: Yes Family/Social History: Other (noncontributory) Smoking Status: Never Smoked Hx Alcohol Use: No Hx Substance Use: No Allergies/Home Meds Allergies/Adverse Reactions: Allergies PORK Allergy (Verified 04/21/18 18:49) ITCHING pork derived (porcine) Allergy (Verified 04/21/18 18:49) ITCHING Home Medications: Home Meds Medication Instructions Recorded Confirmed Ferrous Sulfate [Feosol] 324 mg PO BID 04/21/18 04/21/18 Multivitamin/Iron/Folic Acid 1 tab PO DAILY 04/21/18 04/21/18 [Certavite-Antioxidant Tablet] Review of Systems - Review of Systems Constitutional: Normal. absent: Fatigue, Weight Change, Fevers Eyes: Normal ENT: Normal Respiratory: Normal Cardiovascular: Chest Pain Gastrointestinal: Normal. absent: Abdominal Pain, Constipation, Diarrhea, Nausea, Vomiting Genitourinary Female: Normal. absent: Dysuria, Frequency, Hematuria, Vaginal Bleeding, Vaginal Discharge Musculoskeletal: Normal Skin: Normal Neurological: Normal Endocrine: Normal Hemo/Lymphatic: Normal Psychiatric: Normal Physical Exam Vital Signs Temp Pulse Resp BP Pulse Ox 04/21/18 18:50 98.8 F 97 H 16 123/83 100 Temperature: Afebrile Blood Pressure: Normal Pulse: Regular Respiratory Rate: Normal Appearance: Positive for: Well-Appearing, Non-Toxic, Comfortable Pain Distress: None Mental Status: Positive for: Alert and Oriented X 3 - Systems Exam Head: Present: Atraumatic, Normocephalic Pupils: Present: PERRL Extroacular Muscles: Present: EOMI Conjunctiva: Present: Normal Mouth: Present: Moist Mucous Membranes Neck: Present: Normal Range of Motion Respiratory/Chest: Present: Clear to Auscultation, Good Air Exchange. No: Respiratory Distress, Accessory Muscle Use, Wheezes, Decreased Breath Sounds, Rales, Retracting, Rhonchi, Tachypneic, Tender to Palpation Cardiovascular: Present: Regular Rate and Rhythm, Normal S1, S2. No: Murmurs Abdomen: Present: Normal Bowel Sounds. No: Tenderness, Distention, Peritoneal Signs Back: Present: Normal Inspection. No: CVA Tenderness Upper Extremity: Present: Normal Inspection, Normal ROM. No: Cyanosis, Edema Lower Extremity: Present: Normal Inspection, Normal ROM. No: Edema Neurological: Present: GCS=15, CN II-XII Intact, Speech Normal Skin: Present: Warm, Dry, Normal Color. No: Rashes Psychiatric: Present: Alert, Oriented x 3, Normal Insight, Normal Concentration Medical Decision Making ED Course and Treatment: 04/21/18 20:20 Re-evaluation. Patient feels better. Discussed results and plan with patient who expresses understanding. All questions answered and there is agreement with the plan to discharge home with instructions. Patient stable for discharge. Return if symptoms persist or worsen. Re-evaluation Time: 20:20 Reassessment Condition: Re-examined, Improved - RAD Interpretation Narrative RAD Interpretations (Text): 04/21/18 20:28 Chest x-rays: NAD Radiology Orders: 04/21/18 19:19 CHEST PORTABLE [RAD] Stat - EKG Interpretation Interpreted by ED Physician: Yes (NSR @ [address] changes) Type: 12 lead EKG Comparison: No previous EKG avail. Disposition/Present on Arrival - Present on Arrival Any Indicators Present on Arrival: No History of DVT/PE: No History of Uncontrolled Diabetes: No Urinary Catheter: No History of Decub. Ulcer: No History Surgical Site Infection Following: None - Disposition Have Diagnosis and Disposition been Completed?: Yes Diagnosis: Non-cardiac chest pain, Chest wall pain Disposition: HOME/ ROUTINE Disposition Time: 20:21 Patient Plan: Discharge Patient Problems: Current Active Problems Problem Status Onset Chest wall pain Acute Non-cardiac chest pain Acute Condition: GOOD Discharge Instructions (ExitCare): Costochondritis (DC), Chest Pain That Is Not Caused by the Heart (DC) Additional Instructions: Call private doctor for follow up visit in 1-2 days. Take medication as instructed for pain. Return to emergency if symptoms worsen. Prescriptions: Famotidine [Pepcid] 40 mg PO DAILY #10 tablet Ibuprofen [Motrin] 400 mg PO Q8H PRN #20 tab PRN Reason: Pain, Severe (8-10) Referrals: [facility] [Outside] - Follow up with primary Betsy Ramirez MD [Staff Provider] - Follow up with primary Forms: [place] (Tongan)
[2018-04-21 20:38] VITALS: TEMP 98.1; O2SAT 99
[2018-04-21 20:41] VITALS: BP 130/73; PULSE 87; RESP 17
--- NOTE | 2018-04-22 09:26 | RAD ---
Date of service: 04/21/2018 HISTORY: left sided CP COMPARISON: No prior. FINDINGS: LUNGS: The lungs are clear. PLEURA: No significant pleural effusion identified, no pneumothorax apparent. CARDIOVASCULAR: Normal. OSSEOUS STRUCTURES: No significant abnormalities. VISUALIZED UPPER ABDOMEN: Normal. OTHER FINDINGS: None. IMPRESSION: No acute findings.
--- NOTE | 2018-04-22 12:23 | CARD ---
APPROVED REPORT Date of service: 04/21/2018 EKG Measurement Heart [id number] <Conclusion> Normal sinus rhythm Normal ECG
== END 2018-04-21 20:43 | disposition home or self-care (01) ==
LOC: ED 18:46
DX: R07.89 Other chest pain (principal)

== ENCOUNTER 2018-05-11 18:14 | Emergency (ER) | payer MEDICAID ==
[2018-05-11 18:33] VITALS: RESP 18; TEMP 98.6; O2SAT 100; BMI 23.8
--- NOTE | 2018-05-11 18:38 | ED PDOC ---
Arrival/HPI <Sridhar Da Silva - Last Filed: 05/11/18 20:14> - General Historian: Patient, Spouse - History of Present Illness Time/Duration: Other (see hpi) Context: Home <Vero Villegas - Last Filed: 05/11/18 20:43> - General Time Seen by Provider: 05/11/18 18:24 - History of Present Illness Narrative History of Present Illness (Text): 05/11/18 18:38 This 32 yo female who denies pmh, presents to this ED c/o left sided chest and epigastric pain for over 2 months. Patient was seen in this ED for same x 3 weeks ago. Patient stated she did not take medication which were prescribed during last ED visit. Patient denies sob, cough, trauma, fever, recent travel, sick contact, leg swelling, calf pain, dizziness, blood disorder, control pill use, or abnormal gait. PERC negative for PE. (Vero Villegas) Past Medical History - Provider Review Nursing Documentation Reviewed: Yes <Sridhar Da Silva - Last Filed: 05/11/18 20:14> - Provider Review Nursing Documentation Reviewed: Yes - Infectious Disease Hx of Infectious Diseases: None - Cardiac Hx Cardiac Disorders: No - Pulmonary Hx Respiratory Disorders: No - Neurological Hx Neurological Disorder: No - HEENT Hx HEENT Disorder: No - Renal Hx Renal Disorder: No - Endocrine/Metabolic Hx Endocrine Disorders: No - Hematological/Oncological Hx Blood Disorders: No - Integumentary Hx Dermatological Disorder: No - Musculoskeletal/Rheumatological Hx Musculoskeletal Disorders: No Hx Falls: No - Gastrointestinal Hx Gastrointestinal Disorders: No - Genitourinary/Gynecological Hx Genitourinary Disorders: Yes Hx Urinary Tract Infection: Yes - Psychiatric Hx Psychophysiologic Disorder: No Hx Substance Use: No <Vero Villegas - Last Filed: 05/11/18 20:43> Family/Social History - Physician Review Nursing Documentation Reviewed: Yes Family/Social History: No Known Family HX <Sridhar Da Silva - Last Filed: 05/11/18 20:14> - Physician Review Nursing Documentation Reviewed: Yes Family/Social History: Other (noncontributory) Smoking Status: Never Smoked Hx Alcohol Use: No Hx Substance Use: No <Vero Villegas - Last Filed: 05/11/18 20:43> Allergies/Home Meds <Sridhar Da Silva - Last Filed: 08/10/18 20:14> <Vero Villegas - Last Filed: 05/11/18 20:43> Allergies/Adverse Reactions: Allergies PORK Allergy (Verified 04/21/18 18:49) ITCHING pork derived (porcine) Allergy (Verified 04/21/18 18:49) ITCHING Home Medications: Home Meds Medication Instructions Recorded Confirmed Multivitamin/Iron/Folic Acid 1 tab PO DAILY 04/21/18 05/11/18 [Certavite-Antioxidant Tablet] Review of Systems - Physician Review All systems were reviewed & negative as marked: Yes <Sridhar Da Silva - Last Filed: 05/11/18 20:14> - Review of Systems Constitutional: Normal. absent: Fatigue, Weight Change, Fevers, Night Sweats Eyes: Normal ENT: Normal Respiratory: Normal Cardiovascular: Chest Pain. absent: Palpitations, Edema, Calf Pain, BOLIVAR, Orthopnea, Syncope Gastrointestinal: Abdominal Pain (epigastric). absent: Constipation, Diarrhea, Nausea, Vomiting Genitourinary Female: Normal. absent: Dysuria, Frequency, Hematuria, Urine Output Changes, Vaginal Bleeding, Vaginal Discharge Musculoskeletal: Normal Skin: Normal. absent: Rash Neurological: Normal. absent: Headache, Dizziness, Focal Weakness, Gait Changes , Speech Changes, Facial Droop, Disequilibrium, Seizure Endocrine: Normal Hemo/Lymphatic: Normal Psychiatric: Normal <Vero Villegas - Last Filed: 05/11/18 20:43> Physical Exam Vital Signs Reviewed: Yes Temperature: Afebrile Blood Pressure: Normal Pulse: Tachycardic (at 91) Respiratory Rate: Normal <Sridhar Da Silva - Last Filed: 05/11/18 20:14> Temperature: Afebrile Blood Pressure: Normal Pulse: Regular Respiratory Rate: Normal Appearance: Positive for: Well-Appearing, Non-Toxic, Comfortable Pain Distress: None Mental Status: Positive for: Alert and Oriented X 3 - Systems Exam Head: Present: Atraumatic, Normocephalic Pupils: Present: PERRL Extroacular Muscles: Present: EOMI Conjunctiva: Present: Normal Mouth: Present: Moist Mucous Membranes Neck: Present: Normal Range of Motion Respiratory/Chest: Present: Clear to Auscultation, Good Air Exchange. No: Respiratory Distress, Accessory Muscle Use Cardiovascular: Present: Regular Rate and Rhythm, Normal S1, S2. No: Murmurs Abdomen: Present: Normal Bowel Sounds. No: Tenderness, Distention, Peritoneal Signs, Rebound, Guarding Back: Present: Normal Inspection. No: CVA Tenderness Upper Extremity: Present: Normal Inspection, Normal ROM. No: Cyanosis, Edema Lower Extremity: Present: Normal Inspection, NORMAL PULSES, Normal ROM, Neurovascularly Intact, Capillary Refill < 2 s. No: Edema, CALF TENDERNESS, Kristin's Sign, Tenderness, Swelling, Temperature Abnormalties Neurological: Present: GCS=15, CN II-XII Intact, Speech Normal, Motor Func Grossly Intact, Normal Sensory Function, Normal Cerebellar Funct, Gait Normal, Memory Normal Skin: Present: Warm, Dry, Normal Color. No: Rashes Psychiatric: Present: Alert, Oriented x 3, Normal Insight, Normal Concentration <Vero Villegas - Last Filed: 05/11/18 20:43> Vital Signs Temp Pulse Resp BP Pulse Ox 05/11/18 18:25 98.6 F 91 H 18 133/83 100 Medical Decision Making <Sridhar Da Silva - Last Filed: 05/11/18 20:14> Re-evaluation Time: 19:55 Reassessment Condition: Re-examined, Improved - Lab Interpretations I have reviewed the lab results: Yes Interpretation: Abnormal lab values - EKG Interpretation Interpreted by ED Physician: Yes (NSR @ [address] changes) Type: 12 lead EKG Comparison: Similar to previous EKG <Vero Villegas - Last Filed: 05/11/18 20:43> ED Course and Treatment: 05/11/18 18:30 Impression: Giuliana Miller is a 32 year old female who presents to the Emergency department for intermittent epigastric pain and abdominal pain for past 3 months. Plan: -- EKG -- Labs -- X-Ray of Chest -- Urine culture -- Urinalysis -- Pepcid -- Reassess and disposition Prior Visits: Notes and results from previous visits were reviewed. Patient was last seen in the Emergency department on 04/21/18 for intermittent left sided CP x 1 month. Patient was discharged home with instructions for care and directed to follow up with PMD. Progress Notes: (Sridhar Da Silva) 05/11/18 20:22 Re-evaluation. Patient feels better. Discussed results and plan with patient who expresses understanding. All questions answered and there is agreement with the plan to discharge home with instructions. Patient stable for discharge. Return if symptoms persist or worsen. Patient was recommended to f/u pmd in 1-2 days. Patient feels better, and she wishes to be discharge home. I recommended patient to be compliant with medication, and to return to emergency if symptoms worsen. I told patient she may need to see GI doctor for further testing. Patient denies flank pain, nausea , vomiting, or diarrhea. Abdomen is soft, nt/nd. (Vero Villegas P) - Lab Interpretations Lab Results: 05/11/18 19:15 05/11/18 19:15 Lab Results 05/11/18 20:05: Urine Color Yellow, Urine Appearance Clear, Urine pH 6.0, Ur Specific [place] 1.025, Urine Protein Negative, Urine Glucose (UA) Negative, Urine Ketones 15 H, Urine Blood Moderate H, Urine Nitrate Negative, Urine Bilirubin Negative, Urine Urobilinogen 0.2, Ur Leukocyte Esterase Negative, Urine RBC Pending, Urine WBC Pending, Urine HCG, Qual Negative 05/11/18 19:15: Sodium 139, Potassium 3.9, Chloride 105, Carbon Dioxide 26, Anion Gap 13, BUN 16, Creatinine 0.7, Est GFR ( Amer) > 60, Est GFR (Non- Af Amer) > 60, Random Glucose 88, Calcium 9.3, Magnesium 1.8, Total Bilirubin 0.4, AST 20, ALT 27, Alkaline Phosphatase 64, Lactate Dehydrogenase 355, Total Creatine Kinase 30 L, Troponin I < 0.01, Total Protein 8.0, Albumin 4.2, Globulin 3.8, Albumin/Globulin Ratio 1.1, Lipase 82 05/11/18 19:15: D-Dimer, Quantitative < 200 05/11/18 19:15: WBC 5.8 D, RBC 5.16, Hgb 12.2, Hct 36.7, MCV 71.1 L D, MCH 23.6 L, MCHC 33.2, RDW 15.0 H, Plt Count 214, Gran % 42.5 L, Lymph % (Auto) 47.7 H, [place] % (Auto) 8.1 H, Eos % (Auto) 1.4 L, Baso % (Auto) 0.3, Gran # 2.47 , Lymph # (Auto) 2.8, [place] # (Auto) 0.5, Eos # (Auto) 0.1, Baso # (Auto) 0.02 - RAD Interpretation Narrative RAD Interpretations (Text): 05/11/18 20:34 CXR: NAD (Vero Villegas) Radiology Orders: 05/11/18 18:40 CHEST PORTABLE [RAD] Stat - Medication Orders Current Medication Orders: Discontinued Medications Famotidine (Pepcid 20mg/50ml Premix) 20 mg in 50 mls @ 100 mls/hr IVPB STAT STA Stop: 05/11/18 19:10 Last Admin: 05/11/18 19:04 Dose: 100 mls/hr eMAR Start Stop Document 05/11/18 19:04 SRE (Rec: 05/11/18 19:07 SRE [id number]) Intravenous Solution Start Date 05/11/18 Start Time 19:06 End Date 05/11/18 End time 19:35 Total Infusion Time 29 - Scribe Statement The provider has reviewed the documentation as recorded by the Scribe <Sridhar Da Silva - Last Filed: 05/11/18 20:14> <Vero Villegas - Last Filed: 05/11/18 20:43> - Scribe Statement Melissa Lovingjh All medical record entries made by the Scribe were at my direction and personally dictated by me. I have reviewed the chart and agree that the record accurately reflects my personal performance of the history, physical exam, medical decision making, and the department course for this patient. I have also personally directed, reviewed, and agree with the discharge instructions and disposition. (Sridhar Da Silva) Disposition/Present on Arrival <Sridhar Da Silva - Last Filed: 05/11/18 20:14> - Present on Arrival Any Indicators Present on Arrival: No History of DVT/PE: No History of Uncontrolled Diabetes: No Urinary Catheter: No History of Decub. Ulcer: No History Surgical Site Infection Following: None - Disposition Have Diagnosis and Disposition been Completed?: Yes Disposition Time: 20:34 Patient Plan: Discharge <Vero Villegas - Last Filed: 05/11/18 20:43> - Disposition Diagnosis: Non-cardiac chest pain, Hematuria Disposition: HOME/ ROUTINE Patient Problems: Current Active Problems Problem Status Onset Non-cardiac chest pain Acute Condition: GOOD Discharge Instructions (ExitCare): Chest Pain That Is Not Caused by the Heart ( DC), Blood in the Urine (Hematuria), Adult (DC) Additional Instructions: Call private doctor for follow up visit in 1-2 days. Take medication as instructed. Return to emergency if pain worsen. Make sure to call field assembly supervisor, and urologist. Return to emergency if symptoms worsen. Prescriptions: Cyclobenzaprine [Cyclobenzaprine HCl] 10 mg PO DAILY PRN #10 tab PRN Reason: Muscle Spasm Famotidine [Pepcid] 40 mg PO DAILY #20 tablet Sucralfate [Carafate] 1 gm PO DAILY #30 tab Referrals: Betsy Ramirez MD [Staff Provider] - Follow up with primary Shayne Conner MD [Medical Doctor] - Follow up with primary Rashard Conroy MD [Staff Provider] - Follow up with primary [facility] Nurse [facility] [Outside] - Follow up with primary Forms: WORK NOTE
[2018-05-11] MEDS ORDERED: Famotidine 20mg/50ml 20 MG/50 ML BAG IVPB STA (18:41)
[2018-05-11 19:19] LABS: BASO # 0.02 K/mm3 (0.0-2.0); BASO % 0.3 % (0.0-3.0); EOS # 0.1 (0.0-0.7); EOS % 1.4 % (1.5-5.0); GRAN # 2.47 (1.4-6.5); GRAN % 42.5 % (50.0-68.0); HEMOGLOBIN 12.2 g/dL (12.0-16.0); LYMPH # 2.8 (1.2-3.4); LYMPH % 47.7 % (22.0-35.0); MEAN CELL VOLUME 71.1 fl (80.0-105.0); MEAN CORPUSCULAR HEMOGLOBIN 23.6 pg (25.0-35.0); MEAN CORPUSCULAR HGB CONC 33.2 g/dl (31.0-37.0); MONO # 0.5 (0.1-0.6); MONO % 8.1 % (1.0-6.0); PLATELET COUNT 214 10^3/uL (120.0-450.0); RBC 5.16 10^6/uL (3.5-6.1); WHITE BLOOD COUNT 5.8 10^3/ul (4.5-11.0)
[2018-05-11 19:31] LABS: ALB/GLOB RATIO 1.1 (1.1-1.8); ALBUMIN 4.2 g/dL (3.0-4.8); ALT/SGPT 27 U/L (7-56); AST/SGOT 20 U/L (14-36); BLOOD UREA NITROGEN 16 mg/dL (7-21); CALCIUM 9.3 mg/dL (8.4-10.5); GFR AFRICAN-AMERICAN > 60; GFR NON-AFRICAN AMERICAN > 60; LIPASE 82 U/L (23-300)
[2018-05-11 19:42] LABS: TROPONIN I < 0.01 ng/mL
[2018-05-11 20:18] LABS: URINE APPEARANCE CLEAR (CLEAR); URINE BILIRUBIN NEGATIVE (NEGATIVE); URINE BLOOD MODERATE (NEGATIVE); URINE COLOR YELLOW (YELLOW); URINE GLUCOSE (UA) NEGATIVE (NEGATIVE); URINE LEUKOCYTE ESTERASE NEGATIVE Leu/uL (NEGATIVE); URINE PROTEIN NEGATIVE mg/dL (<30 mg/dL); URINE UROBILINOGEN 0.2 E.U./dL (<1 E.U./dL)
[2018-05-11 20:20] LABS: HCG,QUALITATIVE URINE NEGATIVE (NEGATIVE)
[2018-05-11 20:23] LABS: URINE WBC 0 - 2 /hpf (0-6)
[2018-05-11 20:24] LABS: URINE BACTERIA NEG (NEG)
[2018-05-11 21:53] VITALS: BP 128/72; PULSE 85
--- NOTE | 2018-05-12 08:54 | CARD ---
APPROVED REPORT Date of service: 05/11/2018 EKG Measurement Heart [id number] <Conclusion> Normal sinus rhythm Normal ECG
--- NOTE | 2018-05-12 12:51 | RAD ---
Date of service: 05/11/2018 HISTORY: chest pain COMPARISON: Comparison chest 04/21/2018. TheNo prior. FINDINGS: LUNGS: No active pulmonary disease. PLEURA: No significant pleural effusion identified, no pneumothorax apparent. CARDIOVASCULAR: Normal. OSSEOUS STRUCTURES: No significant abnormalities. VISUALIZED UPPER ABDOMEN: Normal. OTHER FINDINGS: None. IMPRESSION: No active disease.
== END 2018-05-11 20:55 | disposition home or self-care (01) ==
LOC: ED 18:14
DX: R07.89 Other chest pain (principal); R31.9 Hematuria, unspecified